=== PATIENT | male | born 1960 | race Caucasian/White ===

== ENCOUNTER → 2018-02-10 09:37 | Outpatient (CLI) | payer OTHER, SELFPAY ==
[2018-02-10 10:26] LABS: Alanine Aminotransferase 28 IU/L (21-72); Albumin 4.4 g/dL (3.5-5.0); Albumin Globulin Ratio 1.7 (1.0-2.8); Alkaline Phosphatase 71 U/L (38-126); Aspartate Aminotransferase 23 IU/L (17-59); BUN Creatinine Ratio 24.3 (6-22); Bilirubin Total 0.5 mg/dL (0.2-1.3); Blood Urea Nitrogen 17 mg/dL (9-20); Calcium 9.1 mg/dL (8.4-10.2); Carbon Dioxide 28 mmol/L (22-32); Chloride 104 mmol/L (98-107); Cholesterol 150 mg/dL (140-199); Estimated Glomerular Filt Rate > 60.0 mL/min (>60); Globulin 2.6 g/dL (1.7-4.1); Glucose 107 mg/dL (70-100); HDL Cholesterol 38 mg/dL (40-60); HEMOLYSIS < 15 (0-50); LDL Cholesterol Calculated 103 mg/dL (<100); Sodium 145 mmol/L (137-145); Triglycerides 44 mg/dL (35-150)
[2018-02-10 10:31] LABS: Potassium 5.5 mmol/L (3.4-5.1)
[2018-02-10 10:54] LABS: Prostate Specific Antigen Scrn 2.66 ng/mL (0.1-4.0)
== END ==
PROVIDERS: PCP Family Medicine; Visit Provider Family Medicine
DX: Z00.00 Encounter for general adult medical examination without abnormal findings (principal); Z12.5 Encounter for screening for malignant neoplasm of prostate; E78.5 Hyperlipidemia, unspecified
CPT/HCPCS: 36415; 80053; 80061; G0103

== ENCOUNTER → 2018-02-17 08:50 | Outpatient (CLI) | payer OTHER, SELFPAY ==
[2018-02-17 10:49] LABS: BUN Creatinine Ratio 31.4 (6-22); Blood Urea Nitrogen 22 mg/dL (9-20); Calcium 9.5 mg/dL (8.4-10.2); Carbon Dioxide 29 mmol/L (22-32); Chloride 101 mmol/L (98-107); Estimated Glomerular Filt Rate > 60.0 mL/min (>60); Glucose 93 mg/dL (70-100); HEMOLYSIS < 15 (0-50); Sodium 141 mmol/L (137-145)
[2018-02-17 10:52] LABS: Potassium 5.7 mmol/L (3.4-5.1)
== END ==
PROVIDERS: PCP Family Medicine; Visit Provider Family Medicine
DX: E87.5 Hyperkalemia (principal)
CPT/HCPCS: 36415; 80048

== ENCOUNTER → 2018-03-03 10:00 | Outpatient (CLI) | payer OTHER, SELFPAY ==
[2018-03-03 11:57] LABS: BUN Creatinine Ratio 28.8 (6-22); Blood Urea Nitrogen 23 mg/dL (9-20); Calcium 9.2 mg/dL (8.4-10.2); Carbon Dioxide 29 mmol/L (22-32); Chloride 102 mmol/L (98-107); Estimated Glomerular Filt Rate > 60.0 mL/min (>60); Glucose 95 mg/dL (70-100); HEMOLYSIS < 15 (0-50); Potassium 4.3 mmol/L (3.4-5.1); Sodium 141 mmol/L (137-145)
== END ==
PROVIDERS: PCP Family Medicine; Visit Provider Family Medicine
DX: E87.5 Hyperkalemia (principal)
CPT/HCPCS: 36415; 80048

== ENCOUNTER → 2018-10-04 09:38 | Outpatient (CLI) | payer OTHER, SELFPAY ==
[2018-10-04 11:40] LABS: Alanine Aminotransferase 26 IU/L (21-72); Albumin 4.2 g/dL (3.5-5.0); Albumin Globulin Ratio 1.6 (1.0-2.8); Alkaline Phosphatase 80 U/L (38-126); Aspartate Aminotransferase 24 IU/L (17-59); BUN Creatinine Ratio 28.6 (6-22); Bilirubin Total 0.7 mg/dL (0.2-1.3); Blood Urea Nitrogen 20 mg/dL (9-20); Calcium 9.3 mg/dL (8.4-10.2); Carbon Dioxide 26 mmol/L (22-32); Chloride 106 mmol/L (98-107); Estimated Glomerular Filt Rate > 60.0 mL/min (>60); Globulin 2.7 g/dL (1.7-4.1); Glucose 99 mg/dL (70-100); HEMOLYSIS < 15 (0-50); Potassium 4.2 mmol/L (3.4-5.1); Sodium 142 mmol/L (137-145); Total Protein 6.9 g/dL (6.3-8.2)
== END ==
PROVIDERS: PCP Family Medicine; Visit Provider Hospitalist
DX: K21.9 Gastro-esophageal reflux disease without esophagitis (principal)
CPT/HCPCS: 36415; 80053

== ENCOUNTER → 2019-02-22 08:27 | Outpatient (CLI) | payer OTHER, SELFPAY ==
[2019-02-22 08:54] LABS: Add Manual Diff / Slide Review NO; Basophils Absolute Auto 100 /uL (0-100); Basophils Percent Auto 0.9 % (0-2); Eosinophils Absolute Auto 300 /uL (0-450); Eosinophils Percent Auto 5.2 % (2-4); Hematocrit 42.5 % (41-53); Hemoglobin 14.6 g/dL (13.5-17.5); Lymphocytes Absolute Auto 2300 /uL (1100-4500); Mean Corpuscular HGB Conc 34.4 % (30-36); Mean Corpuscular Hemoglobin 31.1 PG (26-34); Mean Corpuscular Volume 90.2 fL (80-100); Monocytes Absolute Auto 500 /uL (0-900); Neutrophils Absolute Auto 2700 /uL (1500-7000); Neutrophils Percent Auto 45.9 % (50-75); Platelet Count 182 X10^3/uL (150-400); Red Blood Cell Count 4.71 X10^6/uL (4.5-5.9); Red Cell Distribution Width 13.2 % (11.6-14.8); White Blood Cell Count 5.9 X10^3/uL (4.5-11.0)
[2019-02-22 09:58] LABS: HEMOLYSIS < 15 (0-50)
[2019-02-22 10:09] LABS: Alanine Aminotransferase 21 IU/L (<50); Albumin 4.2 g/dL (3.5-5.0); Albumin Globulin Ratio 1.7 (1.0-2.8); Alkaline Phosphatase 83 U/L (38-126); Aspartate Aminotransferase 26 IU/L (17-59); BUN Creatinine Ratio 24.3 (6-22); Bilirubin Total 0.9 mg/dL (0.2-1.3); Blood Urea Nitrogen 17 mg/dL (9-20); Calcium 9.4 mg/dL (8.4-10.2); Carbon Dioxide 27 mmol/L (22-32); Chloride 105 mmol/L (98-107); Cholesterol 156 mg/dL (140-199); Estimated Glomerular Filt Rate > 60.0 mL/min (>60); Globulin 2.5 g/dL (1.7-4.1); Glucose 100 mg/dL (70-100); HDL Cholesterol 42 mg/dL (40-60); LDL Cholesterol Calculated 105 mg/dL (<100); Potassium 4.3 mmol/L (3.4-5.1); Sodium 141 mmol/L (137-145); Total Protein 6.7 g/dL (6.3-8.2); Triglycerides 47 mg/dL (35-150)
[2019-02-22 14:10] LABS: Prostate Specific Antigen 3.21 ng/mL (0.10-4.00)
== END ==
PROVIDERS: PCP Family Medicine; Visit Provider Family Medicine
DX: Z12.5 Encounter for screening for malignant neoplasm of prostate (principal); Z13.0 Encounter for screening for diseases of the blood and blood-forming organs and certain disorders involving the immune mechanism; Z13.1 Encounter for screening for diabetes mellitus; Z13.220 Encounter for screening for lipoid disorders; Z82.49 Family history of ischemic heart disease and other diseases of the circulatory system
CPT/HCPCS: 36415; 80053; 80061; 84153; 85025

== ENCOUNTER 2019-08-22 15:20 | Emergency (ER) | payer OTHER, SELFPAY ==
[2019-08-22 15:28] VITALS: BP 122/61; PULSE 72; RESP 16; TEMP 37.1; O2SAT 98; BMI 29.2
[2019-08-22] MEDS: LIDO 1%/SOD BICARB 8.4% (10ML) 10 ML SYRINGE INJ (16:00)
[2019-08-22 16:07] LABS: Body Fluid Appearance CLOUDY; Body Fluid Clotted? NO CLOTS PRESENT; Body Fluid Color YELLOW; Crystals Body Fluid - IN-HOUSE NONE Present
[2019-08-22 16:08] LABS: Body Fluid Red Blood Cells 54 /uL; Body Fluid Tot Nucleated Cells 7 /uL
--- NOTE | 2019-08-22 16:32 | ED_ITS ---
HPI - Extremity Problem General Chief complaint: Extremity Problem,Nontraumatic Stated complaint: left elbow swelling mass, getting bigger Time Seen by Provider: 08/22/19 15:22 Source: patient Mode of arrival: Ambulatory Limitations: no limitations History of Present Illness HPI Narrative: 59-year-old male nonsmoker with history of hyperlipidemia and GERD presents with a chief complaint of swelling of his left elbow over the past day or so. He denies any obvious injury, use of blood thinners or significant pain. Patient works at a local [employer] and has been working out frequently with a [employer]. He has had no fever, chills nor nausea or vomiting. MD Complaint: joint swelling Onset (ago): hour(s) Pain Consistency: constant Location: left Radiation: none Relieving factors: nothing Associated symptoms: denies other symptoms Related Data Previous Rx's Medication Instructions Recorded diclofenac sodium 75 mg PO BID #60 ect 10/12/16 omeprazole 20 mg capsule,delayed 20 mg PO DAILY #60 cap 12/03/18 release atorvastatin 80 mg tablet 40 mg PO Q DAY #45 tab 04/04/19 sulfamethoxazole-trimethoprim 1 tab PO BID 21 Days #42 tab 08/22/19 [Bactrim DS] Allergies Allergy/AdvReac Type Severity Reaction Status Date / Time Penicillins Allergy Unknown CHILDHOOD Verified 04/20/19 08:21 Review of Systems Constitutional Constitutional: Denies chills, Denies fatigue, Denies fever(s), Denies frequent falls, Denies lethargy and Denies weakness Eyes Eyes: Denies change in vision, Denies eye discharge, Denies irritation and Denies loss of vision ENT Ears, Nose, Mouth, and Throat: Denies change in voice, Denies dizziness, Denies neck pain, Denies sore throat and Denies throat swelling Cardiovascular Cardiovascular: Denies chest pain, Denies irregular heart rhythm, Denies lightheadedness, Denies palpitations, Denies dyspnea, Denies dyspnea on exertion and Denies orthopnea Respiratory Respiratory: Denies cough, Denies dyspnea, Denies dyspnea on exertion and Denies wheezing Gastrointestinal Gastrointestinal: Denies abdominal pain, Denies change in bowel habits, Denies diarrhea, Denies nausea and Denies vomiting Genitourinary Genitourinary: Denies hematuria, Denies flank pain, Denies urinary incontinence and Denies urinary urgency Musculoskeletal Musculoskeletal: Denies back pain, Reports joint swelling, Reports limited range of motion, Denies muscle weakness, Denies neck pain, Denies numbness and Denies tingling Integumentary/Breasts Skin/Breast: Denies pruritus, Denies erythema, Denies rash and Denies wounds Neurologic Neurologic: Denies behavioral changes, Denies confusion, Denies dizziness, Denies frequent falls, Denies loss of vision, Denies numbness, Denies tingling and Denies weakness Psychiatric Psychiatric: Denies anxiety, Denies behavioral changes, Denies confusion, Denies depression, Denies homicidal ideation and Denies suicidal ideation Endocrine Endocrine: Denies fatigue, Denies flushing and Denies palpitations Hematologic/Lymphatic Hematologic/Lymphatic: Denies easy bruising Allergic/Immunologic Allergic/Immunologic: Denies urticaria, Denies throat swelling and Denies wheezing Patient History Medical History Chicken pox (Resolved) Hyperlipidemia (Chronic) Measles (Resolved) Mumps (Resolved) Surgical History Anesthesia (Resolved) History of tonsillectomy (~1965) Status post colonoscopy (~2014) Family History Father Age: 77 Hyperlipidemia Prostate cancer Mother Age: 78 GI malignancy Social History marital status: number of children: 2 household members: spouse and family education level: high school occupational status: employed Smoking Status: Never smoker alcohol intake: current substance use type: does not use Smoking Status: Never smoker Exam Narrative Exam Narrative: GEN: AOx3 and in mild distress EYES: Pupils are equal, round, and reactive to light and accommodation. Extraoccular muscles are intact bilaterally. There is no subconjunctival hemorrhage or exudate. CHEST: Lungs are clear to auscultation bilaterally and free of wheezes, rales, or rhonchi. Heart rate is regular rhythm, there are no murmurs, clicks, rubs, or gallops. There is no chest wall tenderness. ABD: Abdomen is soft and nontender. There is no guarding or rebound. Bowel sounds are normal in all 4 quadrants. There is no mass or organomegaly. EXT: Redness and swelling overlying the left olecranon bursa with some fluctuance. Patient has full painless range of motion, no suggestion of septic arthritis. SKIN: Warm, pink, and dry. No erythema or rash Initial Vital Signs Initial Vital Signs: Vital Signs Temperature 98.7 F 08/22/19 15:28 Pulse Rate 72 08/22/19 15:28 Respiratory Rate 16 08/22/19 15:28 Blood Pressure 122/61 08/22/19 15:28 Pulse Oximetry 98 08/22/19 15:28 Procedures Bursa Procedure Time Out Performed: Yes Side of body: left Site of Procedure: olecranon bursa XRAY Obtained: none Antisepsis Used: Chlorhexidine Local Anesthetic: lidocaine 1% and with bicarb Amount of anesthesia used (mL): 4 Fluid obtained (mL): 8 Fluid Type: clear Patient Tolerated Procedure: Well Complications: none Course Course Course Narrative: Low suspicion for infectious etiology. Labs were sent. Upon their receipt I consulted with on-call orthopedist who agrees that no antibiotics needed at this point time. I did call the patient at home to relay this to him Orders Ordered: ED Orders 08/22/19 15:56 Cell Count w Diff Body Fluid Stat Crystals Body Fluid - IN-HOUSE Stat Discontinued Medications Lidocaine/Sodium Bicarbonate (Buffered Lidocaine 10 Ml Syr) 10 ml INJ NOW ONE Stop: 08/22/19 15:28 Last Admin: 08/22/19 16:00 Dose: 10 ml Documented by: CVANCE Vital Signs Vital signs: Vital Signs - 8 hr 08/22/19 15:28 Temperature 98.7 F Pulse Rate 72 Respiratory Rate 16 Blood Pressure 122/61 Pulse Oximetry 98 MDM - Extremity (Nontraumatic) Lab Data Labs: Lab Results 08/22/19 08/22/19 Range/Units 15:56 15:56 Fluid Color Yellow Fluid Appearance Cloudy Fluid RBC 54 /uL Fld Tot Nucleated Cell 7 /uL Fluid Polynuclear WBCs Not Reportable Fluid Mononuclear WBCs Not Reportable Fluid Eosinophils Not Reportable Fluid Other Cells Not Reportable Fluid Crystals None present (NONE) Body Fluid Clot No clots present Discharge Plan Departure Patient Disposition: Home Clinical Impression: Bursitis Qualifiers: Bursitis location: elbow Elbow bursitis location: olecranon bursitis Laterality: left Qualified Code(s): M70.22 - Olecranon bursitis, left elbow Discharge Date/Time: 08/22/19 16:01 Instructions: DI for Elbow Bursitis Activity Restrictions/Additional Instructions: *You have been diagnosed with [left olecranon bursitis] *What to do: *I will call you at the number you provided when lab results come back. Do not fill the antibiotic prescription unless we discuss this. *Follow up with your primary care provider in 2-3 days, call for an appo intment. Let them know you were seen in the Emergency Department and that we ask that you be seen in follow up *Return to ER if you should have any new, worsening or concerning symptoms Prescriptions: New sulfamethoxazole-trimethoprim [Bactrim DS] 800-160 mg tablet 1 tab PO BID 21 Days Qty: 42 RF: 0 No Action diclofenac sodium 75 MG tablet,delayed release (DR/EC) 75 mg PO BID Qty: 60 RF: 1 omeprazole 20 mg capsule,delayed release(DR/EC) 20 mg PO DAILY Qty: 60 RF: 6 atorvastatin [Lipitor] 80 mg tablet 40 mg PO Q DAY Qty: 45 RF: 3 Referrals: Jes Hale DO [Primary Care Provider] - Stand Alone Forms: Work Release Note
== END 2019-08-22 16:01 | disposition home or self-care (01) ==
PROVIDERS: Emergency Provider Emergency Medicine; PCP Family Medicine
DX: M70.22 Olecranon bursitis, left elbow (principal); E78.5 Hyperlipidemia, unspecified
CPT/HCPCS: 20605; 89051; 89060; 99283

== ENCOUNTER 2019-08-23 15:24 | Emergency (ER) | payer OTHER, SELFPAY ==
[2019-08-23 15:33] VITALS: BP 122/61; PULSE 91; RESP 18; TEMP 37.6; O2SAT 99; BMI 29.2
[2019-08-23] MEDS: SODIUM CHLORIDE 0.9% 1,000 ML 1000 ML IV (16:00)
[2019-08-23 16:02] LABS: Add Manual Diff / Slide Review NO; Basophils Absolute Auto 0 /uL (0-100); Basophils Percent Auto 0.5 % (0-2); Eosinophils Absolute Auto 200 /uL (0-450); Eosinophils Percent Auto 1.6 % (2-4); Hematocrit 40.3 % (41-53); Lymphocytes Absolute Auto 1300 /uL (1100-4500); Lymphocytes Percent Auto 13.1 % (25-40); Mean Corpuscular HGB Conc 34.7 % (30-36); Mean Corpuscular Hemoglobin 31.5 PG (26-34); Mean Corpuscular Volume 90.8 fL (80-100); Monocytes Absolute Auto 900 /uL (0-900); Monocytes Percent Auto 8.7 % (3-14); Neutrophils Absolute Auto 7800 /uL (1500-7000); Neutrophils Percent Auto 76.1 % (50-75); Platelet Count 172 X10^3/uL (150-400); Red Blood Cell Count 4.44 X10^6/uL (4.5-5.9); Red Cell Distribution Width 13.2 % (11.6-14.8); White Blood Cell Count 10.3 X10^3/uL (4.5-11.0)
[2019-08-23 16:10] LABS: INR 1.2 (0.9-1.3); Prothrombin Time 13.3 SECONDS (10.1-12.7)
[2019-08-23 16:12] LABS: Lactate (Lactic Acid) 1.1 mmol/L (0.7-2.1)
[2019-08-23 16:13] LABS: PTT Partial Thromboplastin Tim 31 SECONDS (26.4-36.2)
[2019-08-23 16:15] LABS: Alanine Aminotransferase 27 IU/L (<50); Albumin 4.5 g/dL (3.5-5.0); Albumin Globulin Ratio 1.5 (1.0-2.8); Alkaline Phosphatase 73 U/L (38-126); Aspartate Aminotransferase 32 IU/L (17-59); BUN Creatinine Ratio 33.9 (6-22); Blood Urea Nitrogen 21 mg/dL (9-20); Calcium 9.1 mg/dL (8.4-10.2); Carbon Dioxide 26 mmol/L (22-32); Chloride 104 mmol/L (98-107); Estimated Glomerular Filt Rate > 60.0 mL/min (>60); Glucose 106 mg/dL (70-100); HEMOLYSIS < 15 (0-50); Lipase 69 U/L (23-300); Potassium 3.9 mmol/L (3.4-5.1); Sodium 139 mmol/L (137-145); Total Protein 7.5 g/dL (6.3-8.2)
[2019-08-23 16:54] LABS: Procalcitonin < 0.05 ng/mL (<0.5)
[2019-08-23 17:48] VITALS: BP 118/68; PULSE 68; RESP 16; TEMP 37.2; O2SAT 97
--- NOTE | 2019-08-23 18:43 | ED_ITS ---
HPI - General Adult General Chief complaint: Fever Stated complaint: fever and not feeling good Time Seen by Provider: 08/23/19 18:12 Source: patient Mode of arrival: Ambulatory History of Present Illness HPI narrative: 59-year-old gentleman with a history of reflux and hyperlipidemia presented with a left olecranon bursitis developing over the last 72 hours. He was seen in this emergency department yesterday and the bursa was drained s uccessfully with bursal fluid showing no evidence of infection. He presents today with myalgias, fevers and increasing redness around the left elbow. He has full nontender range of motion at the elbow. Related Data Previous Rx's Medication Instructions Recorded diclofenac sodium 75 mg PO BID #60 ect 10/12/16 omeprazole 20 mg capsule,delayed 20 mg PO DAILY #60 cap 12/03/18 release atorvastatin 80 mg tablet 40 mg PO Q DAY #45 tab 04/04/19 sulfamethoxazole-trimethoprim 1 tab PO BID 21 Days #42 tab 08/22/19 [Bactrim DS] cephalexin 500 mg PO Q8H #21 cap 08/23/19 Allergies Allergy/AdvReac Type Severity Reaction Status Date / Time Penicillins Allergy Unknown CHILDHOOD Verified 08/23/19 15:36 Review of Systems Review of Systems Narrative: Pertinent positive and negative findings as per HPI Remainder of review of systems is otherwise unremarkable for ENT: No sore throat, neck pain, ear pain CV: Chest pain, palpitations, dyspnea on exertion Respiratory: Cough, wheeze, dyspnea GI: Nausea, vomiting, diarrhea, change in bowel habits, black or bloody stools : Dysuria, hematuria, flank pain MS: Muscle weakness, numbness, joint swelling or warmth Neuro: Syncope, dizziness, tingling Psych: Depression, anxiety, suicidal ideation Patient History Social History marital status: number of children: 2 household members: spouse and family education level: high school occupational status: employed Smoking Status: Former smoker alcohol intake: current substance use type: does not use Smoking Status: Former smoker Substance Use Type: does not use Exam Narrative Exam Narrative: General: Alert appropriate in no acute distress Respiratory: Able to speak in full sentences, no obvious respiratory distress, clear to auscultation in all lung almonte Cardiac: No tachycardia, no murmurs rubs or gallops Skin: No obvious rashes, warm and dry Neurologic: Grossly intact no obvious asymmetries or abnormalities Psych, appropriate insight and affect, cooperative Extremity: Left elbow has minimal accumulation of olecranon bursal fluid however there is an extending area of cellulitis approximately 5 cm in all directions from the olecranon. He has no axillary adenopathy, there are no lymphangitic streaks. He is completely neurovascularly intact distal and has non painful full range of motion at the elbow suggesting no evidence of intra- articular infection Initial Vital Signs Initial Vital Signs: Vital Signs Temperature 99.6 F 08/23/19 15:33 Pulse Rate 91 H 08/23/19 15:33 Respiratory Rate 18 08/23/19 15:33 Blood Pressure 122/61 08/23/19 15:33 Pulse Oximetry 99 08/23/19 15:33 Course Orders Ordered: ED Orders 08/23/19 15:37 EKG-12 Lead Stat 08/23/19 15:45 Complete Blood Count AUTO DIFF Stat Comprehensive Metabolic Panel Stat Lactate (Lactic Acid) Stat Lipase Stat Partial Thromboplastin Time Stat Procalcitonin Stat Prothrombin Time INR Stat 08/23/19 16:25 Blood Culture Stat Discontinued Medications Sodium Chloride (Normal Saline 0.9%) 1,000 mls @ 1,000 mls/hr IV BOLUS ONE Stop: 08/23/19 16:36 Last Infusion: 08/23/19 17:44 Dose: 0 mls/hr Documented by: Admin: 08/23/19 16:00 Dose: 1,000 mls/hr Documented by: BRAYAN Ceftriaxone Sodium/Dextrose (Rocephin) 2 gm in 50 mls @ 100 mls/hr IV NOW ONE Stop: 08/23/19 19:44 Last Infusion: 08/23/19 20:23 Dose: 0 mls/hr Documented by: Admin: 08/23/19 19:55 Dose: 100 mls/hr Documented by: HAFSA Ketorolac Tromethamine (Toradol) 15 mg IV NOW ONE Stop: 08/23/19 19:15 Last Admin: 08/23/19 19:54 Dose: 15 mg Documented by: HAFSA Vital Signs Vital signs: Vital Signs - 8 hr 08/23/19 15:33 08/23/19 17:48 05/15/20 21:21 Temperature 99.6 F 99.0 F Pulse Rate 91 H 68 80 Respiratory Rate 18 16 Blood Pressure 122/61 118/68 Blood Pressure [Right Arm] 118/68 Pulse Oximetry 99 97 98 Medical Decision Making Medical Records Medical records reviewed: Yes I reviewed the patient's medical records. Lab Data Lab results reviewed: Yes I reviewed the patient's lab results. Result diagrams: 08/23/19 15:45 08/23/19 15:45 Labs: Lab Results 08/23/19 08/23/19 08/23/19 Range/Units 15:45 15:45 15:45 WBC 10.3 (4.5-11.0) X10^3/uL RBC 4.44 L (4.5-5.9) X10^6/uL Hgb 14.0 (13.5-17.5) g/dL Hct 40.3 L (41-53) % MCV 90.8 (80-100) fL MCH 31.5 (26-34) PG MCHC 34.7 (30-36) % RDW 13.2 (11.6-14.8) % Plt Count 172 (150-400) X10^3/uL Neut % (Auto) 76.1 H (50-75) % Lymph % (Auto) 13.1 L (25-40) % Ceiba % (Auto) 8.7 (3-14) % Eos % (Auto) 1.6 L (2-4) % Baso % (Auto) 0.5 (0-2) % Neut # (Auto) 7800 H (9248-5606) /uL Lymph # (Auto) 1300 (8270-7075) /uL Ceiba # (Auto) 900 (0-900) /uL Eos # (Auto) 200 (0-450) /uL Baso # (Auto) 0 (0-100) /uL PT 13.3 H (10.1-12.7) SECONDS INR 1.2 (0.9-1.3) APTT 31 (26.4-36.2) SECONDS Sodium (137-145) mmol/L Potassium (3.4-5.1) mmol/L Chloride (98-107) mmol/L Carbon Dioxide (22-32) mmol/L BUN (9-20) mg/dL Creatinine (0.66-1.25) mg/dL Estimated GFR (>60) mL/min BUN/Creatinine Ratio (6-22) Glucose (70-100) mg/dL Lactate (0.7-2.1) mmol/L Calcium (8.4-10.2) mg/dL Total Bilirubin (0.2-1.3) mg/dL AST (17-59) IU/L ALT (<50) IU/L Alkaline Phosphatase (38-126) U/L Total Protein (6.3-8.2) g/dL Albumin (3.5-5.0) g/dL Globulin (1.7-4.1) g/dL Albumin/Globulin Ratio (1.0-2.8) Lipase (23-300) U/L Procalcitonin < 0.05 (<0.5) ng/mL 08/23/19 08/23/19 Range/Units 15:45 15:45 WBC (4.5-11.0) X10^3/uL RBC (4.5-5.9) X10^6/uL Hgb (13.5-17.5) g/dL Hct (41-53) % MCV (80-100) fL MCH (26-34) PG MCHC (30-36) % RDW (11.6-14.8) % Plt Count (150-400) X10^3/uL Neut % (Auto) (50-75) % Lymph % (Auto) (25-40) % Ceiba % (Auto) (3-14) % Eos % (Auto) (2-4) % Baso % (Auto) (0-2) % Neut # (Auto) (8578-1036) /uL Lymph # (Auto) (8046-1233) /uL Ceiba # (Auto) (0-900) /uL Eos # (Auto) (0-450) /uL Baso # (Auto) (0-100) /uL PT (10.1-12.7) SECONDS INR (0.9-1.3) APTT (26.4-36.2) SECONDS Sodium 139 (137-145) mmol/L Potassium 3.9 (3.4-5.1) mmol/L Chloride 104 (98-107) mmol/L Carbon Dioxide 26 (22-32) mmol/L BUN 21 H (9-20) mg/dL Creatinine 0.62 L (0.66-1.25) mg/dL Estimated GFR > 60.0 (>60) mL/min BUN/Creatinine Ratio 33.9 H (6-22) Glucose 106 H (70-100) mg/dL Lactate 1.1 (0.7-2.1) mmol/L Calcium 9.1 (8.4-10.2) mg/dL Total Bilirubin 1.0 (0.2-1.3) mg/dL AST 32 (17-59) IU/L ALT 27 (<50) IU/L Alkaline Phosphatase 73 (38-126) U/L Total Protein 7.5 (6.3-8.2) g/dL Albumin 4.5 (3.5-5.0) g/dL Globulin 3.0 (1.7-4.1) g/dL Albumin/Globulin Ratio 1.5 (1.0-2.8) Lipase 69 (23-300) U/L Procalcitonin (<0.5) ng/mL MDM Narrative Medical decision making narrative: Labs reviewed. No evidence of sepsis. Patient is started on ceftriaxone in the emergency department prescription for cephalexin is given in follow-up. Developing cellulitis after drainage of an olecranon bursa with resolving olecranon bursitis. No evidence of septic joint. Patient is safe for home discharge Discharge Plan Departure Patient Disposition: Home Clinical Impression: Cellulitis Qualifiers: Site of cellulitis: extremity Site of cellulitis of extremity: upper extremity Laterality: left Qualified Code(s): L03.114 - Cellulitis of left upper limb Discharge Date/Time: 08/23/19 21:21 Instructions: DI for Cellulitis -- Adult Activity Restrictions/Additional Instructions: Thank you for coming in today It looks like the olecranon bursitis (fluid on the elbow) is feeling better after was drained yesterday. You have developed surrounding cellulitis that does not look like it is affecting that bursa or getting into the joint itself. The blood work we did in the emergency room does not suggest that this infection has spread beyond the obvious redness at your elbow. In the emergency room you are given 2 g of ceftriaxone, and antibiotic to get started on treatment. You will need an additional 7 days of oral cephalexin/Keflex to treat the cellulitis. The prescription has been electronically sent to [facility] in [place]. Please start it as soon as possible tomorrow. If you are having increasing fevers, chills, the elbow is getting worse or your having pain with the elbow joint do need to return to the emergency room for additional evaluation. I hope you feel better quickly Prescriptions: New cephalexin 500 mg capsule 500 mg PO Q8H Qty: 21 RF: 0 No Action diclofenac sodium 75 MG tablet,delayed release (DR/EC) 75 mg PO BID Qty: 60 RF: 1 omeprazole 20 mg capsule,delayed release(DR/EC) 20 mg PO DAILY Qty: 60 RF: 6 atorvastatin [Lipitor] 80 mg tablet 40 mg PO Q DAY Qty: 45 RF: 3 sulfamethoxazole-trimethoprim [Bactrim DS] 800-160 mg tablet 1 tab PO BID 21 Days Qty: 42 RF: 0 Referrals: Jes Hale DO [Primary Care Provider] -
[2019-08-23] MEDS: KETOROLAC 60 MG/2 ML VIAL 15 MG IV (19:54)
[2019-08-23] MEDS: CEFTRIAXONE 2 GM/50 ML FROZ.PIGGY IV (19:55)
[2019-08-23 21:21] VITALS: BP 118/68; PULSE 80; O2SAT 98
== END 2019-08-23 21:21 | disposition home or self-care (01) ==
PROVIDERS: Emergency Medicine; Emergency Provider Emergency Medicine; PCP Family Medicine
DX: L03.114 Cellulitis of left upper limb (principal)
CPT/HCPCS: 36415; 80053; 83605; 83690; 84145; 85025; 85610; 85730; 87040; 93005; 96361; 96365; 96375; 99284; J0696; J1885

== ENCOUNTER 2019-08-24 22:32 | Emergency (ER) | payer OTHER, SELFPAY ==
[2019-08-24 22:38] VITALS: BP 133/63; PULSE 74; RESP 16; TEMP 36.9; O2SAT 99; BMI 29.2
--- NOTE | 2019-08-24 22:41 | ED_ITS ---
HPI - Skin/Abscess/Foreign Bdy General Chief complaint: Skin/Abscess/Foreign Body Stated complaint: Left arm bursitis, cellulitis Time Seen by Provider: 08/24/19 22:34 Source: patient and family Mode of arrival: Ambulatory Limitations: no limitations History of Present Illness HPI narrative: 59-year-old male nonsmoker with noncontributory medical history returns for his 3rd visit for evaluation of swelling of his left elbow. I 1st saw him on August 21 for pain and swelling was left elbow after significant overuse and repetitive motion at work and with his workout routine. Elbow was tapped and showed no sign of infection. He was encouraged to lay low at work and home and rapid. He followed up the next day and had some increased redness and filled the prescription of Keflex he was given during his initial visit. He presents tonight due to concerns from family that there is some increased swelling distal to his bursa. He states he has great range of motion and very little pain. He denies any fever or chills. He is not nauseated or vomiting. MD complaint: other Onset (ago): day(s) Tetanus up to date: yes Location: LUE Severity: mild Severity scale (1-10): 1 Quality: aching Pain Consistency: constant Relieving factors: rest Context: none Associated symptoms: denies other symptoms Treatments prior to arrival: bandages and antibiotic Related Data Previous Rx's Medication Instructions Recorded diclofenac sodium 75 mg PO BID #60 ect 10/12/16 omeprazole 20 mg capsule,delayed 20 mg PO DAILY #60 cap 12/03/18 release atorvastatin 80 mg tablet 40 mg PO Q DAY #45 tab 04/04/19 sulfamethoxazole-trimethoprim 1 tab PO BID 21 Days #42 tab 08/22/19 [Bactrim DS] cephalexin 500 mg PO Q8H #21 cap 08/23/19 Allergies Allergy/AdvReac Type Severity Reaction Status Date / Time Penicillins Allergy Unknown CHILDHOOD Verified 08/23/19 15:36 Review of Systems Constitutional Constitutional: Denies chills, Denies fatigue, Denies fever(s), Denies frequent falls, Denies lethargy and Denies weakness Eyes Eyes: Denies change in vision, Denies eye discharge, Denies irritation and Denies loss of vision ENT Ears, Nose, Mouth, and Throat: Denies change in voice, Denies dizziness, Denies neck pain, Denies sore throat and Denies throat swelling Cardiovascular Cardiovascular: Denies chest pain, Denies irregular heart rhythm, Denies lightheadedness, Denies palpitations, Denies dyspnea, Denies dyspnea on exertion and Denies orthopnea Respiratory Respiratory: Denies cough, Denies dyspnea, Denies dyspnea on exertion and Denies wheezing Gastrointestinal Gastrointestinal: Denies abdominal pain, Denies change in bowel habits, Denies diarrhea, Denies nausea and Denies vomiting Genitourinary Genitourinary: Denies hematuria, Denies flank pain, Denies urinary incontinence and Denies urinary urgency Musculoskeletal Musculoskeletal: Denies back pain, Denies muscle weakness, Denies neck pain, Denies numbness and Denies tingling Integumentary/Breasts Skin/Breast: Denies pruritus, Reports erythema, Denies rash and Denies wounds Neurologic Neurologic: Denies behavioral changes, Denies confusion, Denies dizziness, Denies frequent falls, Denies loss of vision, Denies numbness, Denies tingling and Denies weakness Psychiatric Psychiatric: Denies anxiety, Denies behavioral changes, Denies confusion, Denies depression, Denies homicidal ideation and Denies suicidal ideation Endocrine Endocrine: Denies fatigue, Denies flushing and Denies palpitations Hematologic/Lymphatic Hematologic/Lymphatic: Denies easy bruising Allergic/Immunologic Allergic/Immunologic: Denies urticaria, Denies throat swelling and Denies wheezing Patient History Medical History Chicken pox (Resolved) Hyperlipidemia (Chronic) Measles (Resolved) Mumps (Resolved) Surgical History Anesthesia (Resolved) History of tonsillectomy (~1965) Status post colonoscopy (~2014) Family History Father Age: 77 Hyperlipidemia Prostate cancer Mother Age: 78 GI malignancy Social History marital status: number of children: 2 household members: spouse and family education level: high school occupational status: employed Smoking Status: Former smoker alcohol intake: current substance use type: does not use Smoking Status: Former smoker Substance Use Type: does not use Exam Narrative Exam Narrative: GEN: AOx3 and in mild distress EYES: Pupils are equal, round, and reactive to light and accommodation. Extraoccular muscles are intact bilaterally. There is no subconjunctival hemorrhage or exudate. CHEST: Lungs are clear to auscultation bilaterally and free of wheezes, rales, or rhonchi. Heart rate is regular rhythm, there are no murmurs, clicks, rubs, or gallops. There is no chest wall tenderness. ABD: Abdomen is soft and nontender. There is no guarding or rebound. Bowel sounds are normal in all 4 quadrants. There is no mass or organomegaly. EXT: Full and painless range of motion of left upper extremity. There is still some swelling overlying his left bursa but very minimal erythema. Area of con cern is distal to bursa and very soft. Most likely a consequence of gravity dependent edema as a consequence of bursitis. No overlying pain, warmth, tenderness. Very soft and fluid. No lymphangitis SKIN: Warm, pink, and dry. No erythema or rash other than that which is noted above Initial Vital Signs Initial Vital Signs: Vital Signs Temperature 98.5 F 08/24/19 22:38 Pulse Rate 74 08/24/19 22:38 Respiratory Rate 16 08/24/19 22:38 Blood Pressure 133/63 08/24/19 22:38 Pulse Oximetry 99 08/24/19 22:38 Course Orders Ordered: ED Orders 08/24/19 22:45 Basic Metabolic Panel Stat Complete Blood Count AUTO DIFF Stat Vital Signs Vital signs: Vital Signs - 8 hr 08/24/19 22:38 08/24/19 23:12 Temperature 98.5 F Pulse Rate 74 Respiratory Rate 16 16 Blood Pressure 133/63 116/66 Pulse Oximetry 99 97 MDM - Skin/Abscess/Foreign Bdy Lab Data Result diagrams: 08/24/19 22:45 08/24/19 22:45 Labs: Lab Results 08/24/19 08/24/19 Range/Units 22:45 22:45 WBC 11.1 H (4.5-11.0) X10^3/uL RBC 4.40 L (4.5-5.9) X10^6/uL Hgb 13.9 (13.5-17.5) g/dL Hct 40.3 L (41-53) % MCV 91.5 (80-100) fL MCH 31.6 (26-34) PG MCHC 34.5 (30-36) % RDW 13.5 (11.6-14.8) % Plt Count 156 (150-400) X10^3/uL Neut % (Auto) 52.1 D (50-75) % Lymph % (Auto) 29.8 (25-40) % Davison % (Auto) 12.9 (3-14) % Eos % (Auto) 4.0 (2-4) % Baso % (Auto) 1.2 (0-2) % Neut # (Auto) 5800 (7954-1506) /uL Lymph # (Auto) 3300 (1569-9309) /uL Davison # (Auto) 1400 H (0-900) /uL Eos # (Auto) 400 (0-450) /uL Baso # (Auto) 100 (0-100) /uL Sodium 138 (137-145) mmol/L Potassium 3.9 (3.4-5.1) mmol/L Chloride 106 (98-107) mmol/L Carbon Dioxide 24 (22-32) mmol/L BUN 20 (9-20) mg/dL Creatinine 0.57 L (0.66-1.25) mg/dL Estimated GFR > 60.0 (>60) mL/min BUN/Creatinine Ratio 35.1 H (6-22) Glucose 140 H (70-100) mg/dL Calcium 9.1 (8.4-10.2) mg/dL Discharge Plan Departure Patient Disposition: Home Clinical Impression: Cellulitis Qualifiers: Site of cellulitis: extremity Site of cellulitis of extremity: upper extremity Laterality: left Qualified Code(s): L03.114 - Cellulitis of left upper limb Discharge Date/Time: 08/24/19 23:12 Instructions: DI for Cellulitis -- Adult Activity Restrictions/Additional Instructions: *You have been diagnosed with [mild cellulitis of left upper extremity, very reassuring labs and exam] *What to do: * continue to take medications as directed *Follow up with your primary care provider in 2-3 days, call for an appointment. Let them know you were seen in the Emergency Department and that we ask that you be seen in follow up *Return to ER if you should have any new, worsening or concerning symptoms, such as [fever, shaking chills, vomiting or other bothersome symptoms] Prescriptions: No Action diclofenac sodium 75 MG tablet,delayed release (DR/EC) 75 mg PO BID Qty: 60 RF: 1 omeprazole 20 mg capsule,delayed release(DR/EC) 20 mg PO DAILY Qty: 60 RF: 6 atorvastatin [Lipitor] 80 mg tablet 40 mg PO Q DAY Qty: 45 RF: 3 sulfamethoxazole-trimethoprim [Bactrim DS] 800-160 mg tablet 1 tab PO BID 21 Days Qty: 42 RF: 0 cephalexin 500 mg capsule 500 mg PO Q8H Qty: 21 RF: 0 Referrals: Jes Hale DO [Primary Care Provider] -
[2019-08-24 22:52] LABS: Add Manual Diff / Slide Review NO; Basophils Absolute Auto 100 /uL (0-100); Basophils Percent Auto 1.2 % (0-2); Eosinophils Absolute Auto 400 /uL (0-450); Hematocrit 40.3 % (41-53); Hemoglobin 13.9 g/dL (13.5-17.5); Lymphocytes Absolute Auto 3300 /uL (1100-4500); Lymphocytes Percent Auto 29.8 % (25-40); Mean Corpuscular HGB Conc 34.5 % (30-36); Mean Corpuscular Hemoglobin 31.6 PG (26-34); Mean Corpuscular Volume 91.5 fL (80-100); Monocytes Absolute Auto 1400 /uL (0-900); Monocytes Percent Auto 12.9 % (3-14); Neutrophils Absolute Auto 5800 /uL (1500-7000); Neutrophils Percent Auto 52.1 % (50-75); Platelet Count 156 X10^3/uL (150-400); Red Cell Distribution Width 13.5 % (11.6-14.8); White Blood Cell Count 11.1 X10^3/uL (4.5-11.0)
[2019-08-24 23:02] LABS: BUN Creatinine Ratio 35.1 (6-22); Blood Urea Nitrogen 20 mg/dL (9-20); Calcium 9.1 mg/dL (8.4-10.2); Carbon Dioxide 24 mmol/L (22-32); Chloride 106 mmol/L (98-107); Estimated Glomerular Filt Rate > 60.0 mL/min (>60); Glucose 140 mg/dL (70-100); HEMOLYSIS 30 (0-50); Potassium 3.9 mmol/L (3.4-5.1); Sodium 138 mmol/L (137-145)
[2019-08-24 23:12] VITALS: BP 116/66; RESP 16; O2SAT 97
== END 2019-08-24 23:12 | disposition home or self-care (01) ==
PROVIDERS: Emergency Provider Emergency Medicine; PCP Family Medicine
DX: L03.114 Cellulitis of left upper limb (principal)
CPT/HCPCS: 36415; 80048; 85025; 99283

== ENCOUNTER → 2020-02-19 11:44 | Outpatient (CLI) | payer OTHER, SELFPAY ==
[2020-02-19 13:38] LABS: COVID19 -Nasal RAPID Negative (Negative)
== END ==
PROVIDERS: PCP Family Medicine; Visit Provider Physician Assistant
DX: Z03.818 Encounter for observation for suspected exposure to other biological agents ruled out (principal)
CPT/HCPCS: 87635

== ENCOUNTER → 2020-02-24 10:03 | Outpatient (CLI) | payer OTHER, SELFPAY ==
[2020-02-24 12:18] LABS: COVID19 -Nasal RAPID Negative (Negative)
== END ==
PROVIDERS: PCP Family Medicine; Visit Provider Physician Assistant
DX: Z03.818 Encounter for observation for suspected exposure to other biological agents ruled out (principal)
CPT/HCPCS: 87635

== ENCOUNTER → 2020-02-25 09:28 | Outpatient (CLI) | payer OTHER, SELFPAY ==
[2020-02-25 12:05] LABS: Alanine Aminotransferase 31 IU/L (<50); Albumin 4.2 g/dL (3.5-5.0); Albumin Globulin Ratio 1.6 (1.0-2.8); Alkaline Phosphatase 74 U/L (38-126); Aspartate Aminotransferase 29 IU/L (17-59); BUN Creatinine Ratio 27.9 (6-22); Bilirubin Total 0.9 mg/dL (0.2-1.3); Blood Urea Nitrogen 17 mg/dL (9-20); Calcium 9.4 mg/dL (8.4-10.2); Carbon Dioxide 30 mmol/L (22-32); Chloride 103 mmol/L (98-107); Cholesterol 153 mg/dL (140-199); Estimated Glomerular Filt Rate > 60.0 mL/min (>60); Globulin 2.6 g/dL (1.7-4.1); Glucose 93 mg/dL (70-100); HDL Cholesterol 41 mg/dL (40-60); HEMOLYSIS < 15 (0-50); LDL Cholesterol Calculated 101 mg/dL (<100); Potassium 4.6 mmol/L (3.4-5.1); Sodium 138 mmol/L (137-145); Total Protein 6.8 g/dL (6.3-8.2); Triglycerides 55 mg/dL (35-150)
[2020-02-25 12:33] LABS: Prostate Specific Antigen Scrn 2.64 ng/mL (0.1-4.0)
== END ==
PROVIDERS: PCP Family Medicine; Referring Provider Family Medicine; Visit Provider Family Medicine
DX: E78.5 Hyperlipidemia, unspecified (principal); Z12.5 Encounter for screening for malignant neoplasm of prostate
CPT/HCPCS: 36415; 80053; 80061; G0103

== ENCOUNTER → 2020-04-30 13:36 | Outpatient (CLI) | payer OTHER, SELFPAY ==
[2020-04-30 15:49] LABS: COVID19 -Nasal RAPID Negative (Negative)
== END ==
PROVIDERS: PCP Family Medicine; Visit Provider Surgery
DX: Z20.822 Contact with and (suspected) exposure to COVID-19 (principal); Z01.812 Encounter for preprocedural laboratory examination
CPT/HCPCS: 87635; C9803

== ENCOUNTER 2020-05-01 06:39 | Day surgery (SDC) | payer OTHER, SELFPAY ==
--- NOTE | 2020-05-01 | PATH_ITS ---
[facility] Accession Number: [id number] . 01 Material submitted: . PART A: duodenum - DUODENUM PART B: gastrointestinal site - GASTRIC ANTRUM PART C: gastrointestinal site - GASTRIC BODY PART D: esophagus - ESOPHAGUS . 02 Diagnosis: A. Duodenum, Biopsy: Duodenal mucosa with no diagnostic abnormality. Negative for active inflammation, features of sprue, dysplasia, or malignancy. . B. Gastric Antrum, Biopsies: Gastric antral mucosa with mild chronic inflammation and intestinal metaplasia. Intestinal metaplasia present in 1 of 2 biopsy fragments. Negative for Helicobacter organisms by immunohistochemistry. Negative for dysplasia or malignancy. . C. Gastric Body, Biopsies: Gastric body mucosa with no diagnostic abnormality. No evidence of Helicobacter organisms on H/E stain. Negative for intestinal metaplasia. Negative for dysplasia and malignancy. . D. Esophagus, Biopsies: Squamous epithelium with no diagnostic abnormality. Intraepithelial eosinophils are not increased. Negative for dysplasia and malignancy. [facility] 05/07/2020 1749 Local . 02 Electronically signed: . Dev Jorgensen MD, PhD, Pathologist NPI- [id number] . 01 Gross description: . Part A: DUODENUM: Received in formalin are 2 fragment(s) of tobin, soft tissue measuring 0.1 x 0.1 x 0.1 cm to 0.2 x 0.2 x 0.2 cm submitted entirely in 1 cassette(s) Part B: GASTRIC ANTRUM: Received in formalin are 2 fragment(s) of tobin, soft tissue measuring 0.2 x 0.1 x 0.1 cm to 0.4 x 0.2 x 0.2 cm submitted entirely in 1 cassette(s) Part C: GASTRIC BODY: Received in formalin are 3 fragment(s) of tobin, soft tissue measuring 0.1 x 0.1 x 0.1 cm to 0.3 x 0.2 x 0.2 cm submitted entirely in 1 cassette(s) Part D: ESOPHAGUS: Received in formalin are 3 fragment(s) of tobin, soft tissue measuring 0.1 x 0.1 x 0.1 cm to 0.2 x 0.1 x 0.1 cm submitted entirely in 1 cassette(s) /[facility] 05/04/2020 1928 Local . 02 Microscopic: . B. An immunohistochemical stain was performed to evaluate for Helicobacter organisms and is negative. The control stain showed appropriate reactivity. . * This test was developed and its performance characteristics determined by [facility]. It has not been cleared or approved by the U.S. Food and Drug Administration. The FDA has determined that such clearance or approval is not necessary. This test is used for clinical purposes. It should not be regarded as investigational or for research. . 02 Pathologist provided ICD-10: R14.0, R68.81, R14.2, K31.9 . 02 CPT . 400461, 801151, 526296, 296854, L08074 Performed at: 01 [facility] [address] [place] [address], [place], [place] [id number] MD Fabricio Esteves MD Phone: [phone] Performed at: 02 [facility] [address] [place] [id number] MD Trisha Bhatti MD Phone: [phone]
[2020-05-01 07:10] VITALS: BP 130/77; PULSE 77; RESP 16; TEMP 37.1; O2SAT 98; BMI 29.5
[2020-05-01] MEDS: SODIUM CHLORIDE 0.9% 1,000 ML 200 ML IV (07:23)
--- NOTE | 2020-05-01 07:39 | PM.PREOP ---
Pre-operative Note COVID-19 COVID-19 status: Negative Result date/Date tested (Pos, Neg/Pending): 04/30/20 Interval Note History & Physical reviewed/Exam performed by Physician: Yes Changes to H&P: Yes H&P completed within 30 days and has changed as indicated here:: Pt symptoms returned and he would like to go ahead with diagnostic EGD ASA Class (for procedural sedation): II
[2020-05-01] MEDS: LIDOCAINE 4% SOLN 50 ML 20 ML TOP (07:48)
[2020-05-01] MEDS: fentaNYL 250 MCG/5 ML INJ IV (07:50)
[2020-05-01] MEDS: MIDAZOLAM 5 MG/5 ML VIAL IV (07:53)
--- NOTE | 2020-05-01 08:08 | PM.OP.ENDO ---
Operative Date/Time/Diagnoses Date of procedure: 05/01/20 Time of procedure: 08:08 Pre-op diagnosis: Epigastric pain, nausea Post-op diagnosis: same (mild appearing endoscopic gastritis, no hiatal hernia, no endoscopic evidence of ulcer or esophagitis) Procedure & Clinicians Study performed: Esophagogastroduodenoscopy Procedural sedation performed by the endoscopist Biopsies of duodenum, gastric antrum, gastric body, esophagus using standard forceps Same procedure as scheduled: Yes Indications: Epigastric pain, postprandial nausea Surgeon: Jocelyne Figueroa Procedure Notes SCOAP/Timeout: Performed Procedure in detail: The patient was brought to the room and placed in left lateral decubitus position with all bony prominences padded. A bite block was positioned in the patient's mouth to protect the lips, teeth, and tongue for the procedure. A time-out was performed and then the patient was given procedural sedation starting with 6 mg of Versed and 100 mcg of fentanyl. Vitals were monitored throughout the procedure and remained stable. Once adequately sedated, the procedure was begun. The lubricated gastroscope was passed through the bite block and across the tongue and into the esophagus without incident. A tubular view of the esophagus was maintained as the scope was advanced through the esophagus and into the stomach. The scope was advanced through the stomach and to the pylorus. There was quite a bit of clear fluid in the stomach, no bilious content or undigested food was seen. Clear fluid was seen refluxing back into the stomach from the duodenum. The scope was gently popped through the pylorus and into the duodenal bulb. The scope was flexed and advanced into the second and third portions of the duodenum. The duodenum and duodenal bulb appeared normal. Biopsies were taken evaluate microscopic mucosal abnormalities. The scope was withdrawn into the stomach. The stomach appeared fairly normal, without evidence of significant endoscopic gastritis, but some mild mucosal changes which may indicate a low-grade gastritis. Biopsies were taken of the antrum and gastric body to evaluate gastritis and to rule out H pylori. The scope was retroflexed and the gastric cardia was examined. The hiatus appeared normal, with no evidence of a significant gaping around the scope, or hiatal hernia. No ulcers were seen or other abnormalities in the cardia. The scope was then straightened, and withdrawn into the esophagus. The Z-line appeared normal. The distal esophagus appeared normal. Biopsies were taken in the distal and mid esophagus to evaluate microscopic esophagitis. The scope was then withdrawn through the esophagus with a tubular view. The scope was then withdrawn from the patient the procedure was concluded. The patient tolerated the procedure well and was transferred to the PACU in stable condition. Sedation minutes: 18 Findings: gastritis Specimen(s): other (Biopsies of duodenum, gastric antrum, gastric body, esophagus) Complications: none Impression: Mild visible gastritis, no other significant abnormality Post-procedure Recommendations: Other recommendation (Further recommendations pending biopsy results) Follow up: as needed Disposition: PACU
[2020-05-01 08:14] VITALS: BP 114/72; PULSE 77; RESP 12; TEMP 36.7; O2SAT 94
[2020-05-01 08:19] VITALS: BP 120/79; PULSE 83; RESP 16; O2SAT 94
[2020-05-01 08:24] VITALS: BP 112/82; PULSE 77; RESP 12; O2SAT 95
[2020-05-01 08:29] VITALS: BP 117/76; PULSE 73; RESP 18; TEMP 36.7; O2SAT 93
[2020-05-01 08:36] VITALS: BP 119/77; PULSE 74; RESP 16; O2SAT 94
--- NOTE | 2020-05-01 08:47 | SUR.PHASEII ---
Pt has met discharge criteria: Denied pain or nausea, able to drink fluids without difficulty. Discharge instructions discussed with pt, all questions answered. Transported via W/C to private vehicle.
== END 2020-05-01 08:51 | disposition home or self-care (01) ==
PROVIDERS: PCP Family Medicine; Referring Provider Surgery; Visit Provider Surgery
PROC: 0DJD8ZZ Inspection of Lower Intestinal Tract, Via Natural or Artificial Opening Endoscopic (ICD-10-PCS; CPT 45378; principal; 2020-05-01 07:45)
DX: K29.50 Unspecified chronic gastritis without bleeding (principal); E78.5 Hyperlipidemia, unspecified
CPT/HCPCS: 43239; 99152; J2250; J3010

== ENCOUNTER → 2020-08-20 07:47 | Outpatient (CLI) | payer OTHER, SELFPAY ==
[2020-08-20] MEDS: COVID-19 VACC #1, MRNA(MOD) 100 MCG/0.5 ML VIAL IM (07:59)
== END ==
PROVIDERS: PCP Family Medicine; Visit Provider Internal Medicine
DX: Z23 Encounter for immunization (principal)
CPT/HCPCS: 0011A; 91301

== ENCOUNTER → 2020-09-18 15:49 | Outpatient (CLI) | payer OTHER, SELFPAY ==
[2020-09-18] MEDS: COVID-19 VACC #2, MRNA(MOD) 100 MCG/0.5 ML VIAL IM (16:00)
== END ==
PROVIDERS: PCP Family Medicine; Visit Provider Internal Medicine
DX: Z23 Encounter for immunization (principal)
CPT/HCPCS: 0012A; 91301

== ENCOUNTER → 2021-03-13 10:30 | Outpatient (CLI) | payer OTHER, SELFPAY ==
[2021-03-13 10:41] LABS: Add Manual Diff / Slide Review NO; Basophils Absolute Auto 100 /uL (0-100); Basophils Percent Auto 0.8 % (0-2); Eosinophils Absolute Auto 400 /uL (0-450); Eosinophils Percent Auto 6.3 % (2-4); Hematocrit 41.3 % (41-53); Hemoglobin 14.1 g/dL (13.5-17.5); Lymphocytes Absolute Auto 2400 /uL (1100-4500); Lymphocytes Percent Auto 37.4 % (25-40); Mean Corpuscular HGB Conc 34.3 % (30-36); Mean Corpuscular Hemoglobin 30.9 PG (26-34); Mean Corpuscular Volume 90.2 fL (80-100); Monocytes Absolute Auto 600 /uL (0-900); Monocytes Percent Auto 9.9 % (3-14); Neutrophils Absolute Auto 2900 /uL (1500-7000); Neutrophils Percent Auto 45.6 % (50-75); Platelet Count 171 X10^3/uL (150-400); Red Blood Cell Count 4.58 X10^6/uL (4.5-5.9); Red Cell Distribution Width 13.5 % (11.6-14.8); White Blood Cell Count 6.5 X10^3/uL (4.5-11.0)
[2021-03-13 11:51] LABS: HEMOLYSIS < 15 (0-50); Prostate Specific Antigen 2.59 ng/mL (0.10-4.00)
[2021-03-13 12:07] LABS: Alanine Aminotransferase 40 IU/L (<50); Albumin 4.1 g/dL (3.5-5.0); Albumin Globulin Ratio 1.6 (1.0-2.8); Alkaline Phosphatase 75 U/L (38-126); Aspartate Aminotransferase 34 IU/L (17-59); BUN Creatinine Ratio 26.6 (6-22); Bilirubin Total 0.7 mg/dL (0.2-1.3); Blood Urea Nitrogen 17 mg/dL (9-20); Calcium 9.1 mg/dL (8.4-10.2); Carbon Dioxide 31 mmol/L (22-32); Chloride 105 mmol/L (98-107); Cholesterol 141 mg/dL (140-199); Estimated Glomerular Filt Rate > 60.0 mL/min (>60); Globulin 2.6 g/dL (1.7-4.1); Glucose 102 mg/dL (70-100); HDL Cholesterol 33 mg/dL (40-60); LDL Cholesterol Calculated 100 mg/dL (<100); Potassium 3.9 mmol/L (3.4-5.1); Sodium 142 mmol/L (137-145); Total Protein 6.7 g/dL (6.3-8.2); Triglycerides 41 mg/dL (35-150)
== END ==
PROVIDERS: PCP Family Medicine; Referring Provider Family Medicine; Visit Provider Family Medicine
DX: Z82.49 Family history of ischemic heart disease and other diseases of the circulatory system (principal); K29.50 Unspecified chronic gastritis without bleeding; Z12.5 Encounter for screening for malignant neoplasm of prostate; E78.2 Mixed hyperlipidemia
CPT/HCPCS: 36415; 80053; 80061; 84153; 85025

== ENCOUNTER → 2021-06-30 09:05 | Outpatient (CLI) | payer OTHER, SELFPAY ==
[2021-06-30 11:38] LABS: COVID19 -Nasal RAPID Negative (Negative)
== END ==
PROVIDERS: PCP Family Medicine; Visit Provider Surgery
DX: Z01.812 Encounter for preprocedural laboratory examination (principal); Z20.822 Contact with and (suspected) exposure to COVID-19
CPT/HCPCS: 87635; C9803

== ENCOUNTER 2021-07-01 06:42 | Day surgery (SDC) | payer OTHER, SELFPAY ==
--- NOTE | 2021-07-01 | PATH_ITS ---
[facility] Accession Number: [id number] . 01 Material submitted: . PART A: duodenum - DUODENAL BIOPSIES PART B: stomach - ANTRUM BIOPSIES PART C: gastrointestinal site - GASTRIC BODY . 02 Diagnosis: A. Duodenum, Biopsies: Small bowel mucosa with no diagnostic abnormality. Negative for active inflammation, features of sprue, dysplasia, or malignancy. . B. Stomach, Antrum, Biopsies: Antral mucosa with mild chronic gastritis. Negative for Helicobacter organisms by immunohistochemistry. Negative for intestinal metaplasia. Negative for dysplasia and malignancy. . C. Stomach, Body, Biopsy: Body-type mucosa with mild chronic gastritis. Negative for Helicobacter organisms by immunohistochemistry. Negative for intestinal metaplasia. Negative for dysplasia and malignancy. [facility] 07/07/2021 1237 Local . 02 Electronically signed: . Trisha Bhatti MD, Pathologist NPI- [id number] . 01 Gross description: . Part A: DUODENAL BIOPSIES: Received in formalin are 2 fragment(s) of tobin, soft tissue measuring 0.4 x 0.2 x 0.1 cm to 0.1 x 0.1 x 0.1 cm submitted entirely in 1 cassette(s) Part B: ANTRUM BIOPSIES: Received in formalin are multiple fragment(s) of tobin, soft tissue measuring 0.5 x 0.3 x 0.1 cm in aggregate submitted entirely in 1 cassette(s) Part C: GASTRIC BODY: Received in formalin is 1 fragment(s) of tobin, soft tissue measuring 0.3 x 0.2 x 0.1 cm submitted entirely in 1 cassette(s) /CPE 07/02/2021 0521 Local . 02 Microscopic: . B-C. Immunohistochemical stains were performed on blocks B and C in order to evaluate for Helicobacter organisms and are both negative. The control stain showed appropriate reactivity. . * This test was developed and its performance characteristics determined by [facility]. It has not been cleared or approved by the U.S. Food and Drug Administration. The FDA has determined that such clearance or approval is not necessary. This test is used for clinical purposes. It should not be regarded as investigational or for research. . 02 Pathologist provided ICD-10: K29.70 . 02 CPT . 335870, 532004, 138807, L02551 Specimen Comment: A courtesy copy of this report has been sent to [phone] Performed at: 01 [facility] [address] [place] [address], [place], [place] [id number] MD Fabricio Esteves MD Phone: [phone] Performed at: 02 [facility] [address] [place] [id number] MD Trisha Bhatti MD Phone: [phone]
[2021-07-01 07:07] VITALS: BMI 29.2
[2021-07-01 07:12] VITALS: BP 123/70; PULSE 81; RESP 16; TEMP 36.1; O2SAT 98
[2021-07-01] MEDS: LACTATED RINGERS 1,000 ML 84 ML IV (07:18)
--- NOTE | 2021-07-01 07:44 | PM.HP.1 ---
History of Present Illness History of Present Illness Date Patient Seen: 07/01/21 Time Patient Seen: 07:44 Chief complaint: SDC Narrative: Reymundo is a 61-year-old man who had an EGD a year ago by Dr. Figueroa with biopsies of the antrum that showed some metaplasia. Had biopsies taken from his distal esophagus which were normal. He reports that his symptoms include a general feeling of malaise after eating without specific pain. Coffee and carbonated beverages seem to be principal triggers. Fatty foods do not seem to be associated with the symptoms. He states that his symptoms have improved somewhat since last year. Patient History Medical History Chicken pox Hyperlipidemia Measles Mumps Surgical History Anesthesia History of tonsillectomy (~1965) Status post colonoscopy (~2014) Family & Social History Family History Father Age: 78 Hyperlipidemia Prostate cancer Mother Age: 79 GI malignancy Social History: household members spouse,family Tobacco & Substance use: Tobacco type cigarettes Smoking Status Former smoker alcohol intake current alcohol intake frequency holiday/special occasion Substance Use Type does not use Meds Home Medications and Allergies Home Medications Medication Instructions Recorded Confirmed Type atorvastatin 80 mg tablet See Rx Instructions .ROUTE 05/27/21 07/01/21 Rx .COMPLEX #45 tab Allergies Allergy/AdvReac Type Severity Reaction Status Date / Time Penicillins Allergy Unknown CHILDHOOD Verified 07/01/21 06:57 Exam Vital Signs (past 8 hours): - 07/01/21 07:12 Temperature 97.0 F L Pulse Rate 81 Respiratory Rate 16 Blood Pressure 123/70 Pulse Oximetry 98 Oxygen Delivery Method Room Air Const General: healthy appearing Resp Effort & Inspection: normal respiratory effort Cardio Rate: regular rate GI Palpation: soft Other: No Jauregui sign Assessment & Plan Assessment and plan (1) Gastritis: Qualifiers: Gastritis type: unspecified gastritis Chronicity: chronic Gastritis bleeding: without bleeding Qualified Code(s): K29.50 - Unspecified chronic gastritis without bleeding Status: Acute Plan Plan for esophageal gastroduodenoscopy. We reviewed the risks and benefits and he would like to proceed. COVID-19 COVID-19 status: Negative Result date/Date tested (Pos, Neg/Pending): 06/30/21 Time Spent With Patient Critical Care time: I spent a total of [] minutes of critical care time on this patient's care today; this time is exclusive of procedural time.
[2021-07-01] MEDS: LIDOCAINE 4% SOLN 50 ML 20 ML TOP (07:49)
[2021-07-01] MEDS: MIDAZOLAM 5 MG/5 ML VIAL IV (07:50)
[2021-07-01] MEDS: fentaNYL 250 MCG/5 ML INJ IV (07:51)
--- NOTE | 2021-07-01 08:09 | PM.OP.EGD ---
Operative Date/Time/Diagnoses Date of procedure: 07/01/21 Time of procedure: 08:09 Pre-op diagnosis: History of gastric metaplasia Post-op diagnosis: same Procedure & Clinicians Study performed: Esophagogastroduodenoscopy Surgeon: Christiano Stacy Procedure Notes Procedure in detail: A timeout was performed. A bite blocked was placed. The patient was positioned in the left lateral decubitus position. The endoscope was inserted through the bite block and passed through the esophagus and stomach and into the duodenum. The duodenal mucosa appeared normal. Random biopsies were taken from the duodenum with cold forceps. The scope was withdrawn into the duodenal bulb and no abnormalities were noted. The scope was withdrawn into the stomach. The antrum appeared relatively normal over several random biopsies were taken from the antrum with cold forceps since this was the area with an abnormal results a year ago. There was a small patch of questionable mucosal disruption in the body of the stomach along the greater curve and random biopsies were taken from this patch. The scope was retroflexed and no hiatal hernia was seen. The scope was withdrawn into the esophagus and the distal esophagus and GE junction appeared normal. The remainder of the esophagus was normal. The scope was withdrawn. The patient was awakened and brought to recovery. Sedation minutes: 16 Post-procedure Recommendations: Will call with biopsy results Disposition: PACU
[2021-07-01 08:15] VITALS: BP 113/65; PULSE 64; RESP 15; TEMP 36.2; O2SAT 96
[2021-07-01 08:25] VITALS: BP 115/71; PULSE 71; RESP 15; O2SAT 96
[2021-07-01 08:30] VITALS: BP 110/69; PULSE 67; RESP 15; O2SAT 97
--- NOTE | 2021-07-01 08:33 | SUR.PHASEI ---
Discharge instructions reviewed with pt and he verbalized understanding.
[2021-07-01 08:35] VITALS: BP 114/65; PULSE 65; RESP 15; O2SAT 97
== END 2021-07-01 08:45 | disposition home or self-care (01) ==
PROVIDERS: PCP Family Medicine; Referring Provider Surgery; Visit Provider Surgery
PROC: 0DJ08ZZ Inspection of Upper Intestinal Tract, Via Natural or Artificial Opening Endoscopic (ICD-10-PCS; CPT 43235; principal; 2021-07-01 07:45)
DX: K29.50 Unspecified chronic gastritis without bleeding (principal)
CPT/HCPCS: 43239; 99152; J2250; J3010

== ENCOUNTER → 2021-07-14 12:24 | Outpatient (CLI) | payer OTHER, SELFPAY ==
--- NOTE | 2021-07-14 12:27 | DI.CT.S_ITS ---
PROCEDURE: CT ABDOMEN PELVIS W CON INDICATIONS: dyspepsia TECHNIQUE: After the administration of oral and IV contrast, axial sections were acquired from the lung bases to the pubic symphysis. Coronal and sagittal reformats were performed. For radiation dose reduction, the following was used: automated exposure control, adjustment of mA and/or kV according to patient size. COMPARISON: None. FINDINGS: Image quality: Excellent. Lung bases: Unremarkable. Heart: No significant findings. ABDOMEN: Liver: Numeral contour. 9 mm hypoattenuating lesion in the right hepatic lobe, most consistent with a cyst. Gallbladder: Contracted. A 1 cm gallstone is seen. Biliary ducts: Unremarkable. Pancreas: Unremarkable. Spleen: Unremarkable. Adrenal Glands: Unremarkable. Kidneys and Ureters: Symmetric enhancement without evidence of obstructive uropathy. 1.3 cm hypodense lesion in the left lower pole, which may reflect a proteinaceous or hemorrhagic cyst. Stomach and Bowel: No evidence of intestinal obstruction or inflammatory change. The appendix appears normal. Peritoneum: No abnormal intraperitoneal fluid. No free air. Ventral Wall: No hernia. Abdominal Nodes: No retroperitoneal lymphadenopathy. Soft tissue density within the mesentery with prominent mesenteric nodes. Vessels: Aorta and inferior vena cava are normal in size. PELVIS: Pelvic Organs: Enlargement of the prostate measuring 4.5 cm in transverse dimension. Bladder: The urinary bladder is not well distended. Pelvic Nodes: No enlarged lymph nodes. Miscellaneous: No inguinal hernias are seen. Bones: Multifocal degenerative change, most prominent at L4 through S1. IMPRESSION: 1. Infiltrative changes of the mesentery with nodes, which may reflect an infectious or inflammatory process. 2. 1.3 cm hypodense lesion in the left lower pole, which may reflect a proteinaceous or hemorrhagic cyst. Dictated by: Jesús Bergeron M.D. on 07/14/2021 at 14:31 Approved by: Jesús Bergeron M.D. on 07/14/2021 at 14:38
== END ==
PROVIDERS: PCP Family Medicine; Referring Provider Surgery; Visit Provider Surgery
DX: K29.50 Unspecified chronic gastritis without bleeding (principal); R59.0 Localized enlarged lymph nodes; N28.89 Other specified disorders of kidney and ureter; K76.9 Liver disease, unspecified; K80.20 Calculus of gallbladder without cholecystitis without obstruction
CPT/HCPCS: 74177; Q9967

== ENCOUNTER → 2021-09-10 12:18 | Outpatient (CLI) | payer OTHER, SELFPAY ==
--- NOTE | 2021-09-10 12:20 | DI.CT.S_ITS ---
PROCEDURE: CT ABDOMEN PELVIS W CON INDICATIONS: Abnormal imaging TECHNIQUE: After the administration of oral and intravenous contrast, axial sections were acquired from the lung bases to the pubic symphysis. Coronal and sagittal reformats were performed. For radiation dose reduction, the following was used: automated exposure control, adjustment of mA and/or kV according to patient size. COMPARISON:[facility], CT, CT ABDOMEN PELVIS W CON, 07/14/2021, 13:23. FINDINGS: Image quality: Excellent. Lung bases: Lung bases are clear. Heart size is normal. Solid organs: Liver: The liver has no mass or intrahepatic biliary ductal dilatation. The liver has a hypodensity measuring 1 cm in the right lobe laterally which is unchanged. Biliary: The gallbladder has no wall thickening. There are gallstones within the neck of the gallbladder with no evidence of cholecystitis. Pancreas: The pancreas has no mass or ductal dilatation. There is no surrounding inflammation. Spleen: Normal size. There are no masses. Adrenals: No hypertrophy or nodules. Kidneys: No obstructive calculus or hydronephrosis. No solid mass. No cystic mass. Hyperdense cyst in the left inferior pole is likely a hemorrhagic cyst. Peritoneum and bowel: Ground-glass opacities in the central mesentery are unchanged. The distal esophagus and stomach are normal. The small bowel has a normal caliber and appearance. The terminal ileum is normal. The large bowel has a normal caliber and appearance. The appendix is normal. No free fluid or air. The appendix is normal. Nodes and vessels: No retroperitoneal or mesenteric adenopathy by size criteria. Aorta and inferior vena cava are normal in size. The aorta has diffuse atherosclerotic calcifications. Miscellaneous: No abdominal wall mass or hernia. PELVIS: Genitourinary: The bladder has no wall thickening or mass. No bladder calcifications. Bones: Degenerative changes with no focal abnormality. Degenerative disc disease at L4-5 and L5-S1 causing foraminal and central canal stenosis. No vertebral body compression fractures. IMPRESSION: 1. No acute abnormality of the abdomen. 2. Ground-glass attenuation in the mesenteric root, no change compared to the prior CT on 07/14/2021 no adenopathy.. This finding can be seen with mesenteric panniculitis, mesenteric lymphoma, cirrhosis, inflammatory bowel disease, or can be idiopathic. This finding is usually a nonspecific incidental finding. No evidence of lymphadenopathy to suggest lymphoma. Dictated by: Robert Chavarria M.D. on 09/10/2021 at 15:03 Approved by: Robert Chavarria M.D. on 09/10/2021 at 15:10
== END ==
PROVIDERS: PCP Family Medicine; Referring Provider Surgery; Visit Provider Surgery
DX: R93.5 Abnormal findings on diagnostic imaging of other abdominal regions, including retroperitoneum (principal)
CPT/HCPCS: 74177; Q9967

== ENCOUNTER → 2022-10-19 12:04 | Outpatient (CLI) | payer OTHER, SELFPAY ==
[2022-10-19 13:28] LABS: Alanine Aminotransferase 34 IU/L (<50); Albumin 4.4 g/dL (3.5-5.0); Albumin Globulin Ratio 1.6 (1.0-2.8); Alkaline Phosphatase 105 U/L (38-126); Aspartate Aminotransferase 31 IU/L (17-59); BUN Creatinine Ratio 36.5 (6-22); Bilirubin Total 0.5 mg/dL (0.2-1.3); Blood Urea Nitrogen 23 mg/dL (9-20); Calcium 9.3 mg/dL (8.4-10.2); Carbon Dioxide 28 mmol/L (22-32); Chloride 104 mmol/L (98-107); Cholesterol 160 mg/dL (140-199); Estimated Glomerular Filt Rate > 60 mL/min (>60); Globulin 2.7 g/dL (1.7-4.1); Glucose 75 mg/dL (80-110); HEMOLYSIS < 15 (0-50); Potassium 4.5 mmol/L (3.4-5.1); Sodium 140 mmol/L (137-145); Total Protein 7.1 g/dL (6.3-8.2); Triglycerides 41 mg/dL (35-150)
[2022-10-19 13:58] LABS: Prostate Specific Antigen Scrn 2.87 ng/mL (0.1-4.0)
[2022-10-19 14:18] LABS: HDL Cholesterol 42 mg/dL (40-60); LDL Cholesterol Calculated 110 mg/dL (<100)
[2022-10-20 03:18] LABS: Labcorp Hemoglobin (Hb) A1c 5.7 % (4.8-5.6)
[2022-10-20 16:38] LABS: HIV 1 & 2 Ab/Ag 4th Gen Combo NEGATIVE (NEGATIVE); Hep C Virus Ab w/Reflex Quant NEGATIVE s/c (NEGATIVE)
== END ==
PROVIDERS: PCP Family Medicine; Referring Provider Family Medicine; Visit Provider Family Medicine
DX: Z00.00 Encounter for general adult medical examination without abnormal findings (principal); E78.5 Hyperlipidemia, unspecified; Z12.5 Encounter for screening for malignant neoplasm of prostate
CPT/HCPCS: 36415; 80053; 80061; 83036; 86803; 87389; G0103

== ENCOUNTER → 2023-04-28 17:37 | Outpatient (CLI) | payer OTHER, SELFPAY ==
[2023-04-28 19:12] LABS: COVID-19 CEPHEID 4-PLEX PCR Negative (Negative); Influenza A - CEPHEID Flu A POSITIVE (NEGATIVE); Influenza B - CEPHEID Flu B NEGATIVE (NEGATIVE); Respiratory Syncytial Virus Negative (Negative)
== END ==
PROVIDERS: PCP Family Medicine; Visit Provider Physician Assistant Medical
DX: Z20.828 Contact with and (suspected) exposure to other viral communicable diseases (principal)
CPT/HCPCS: 0241U

== ENCOUNTER → 2023-10-07 10:33 | Outpatient (CLI) | payer OTHER, SELFPAY ==
[2023-10-07 11:47] LABS: Hemoglobin A1C% w Est Avg Glu 5.7 % (4.0-6.0)
== END ==
PROVIDERS: PCP Family Medicine; Referring Provider Family Medicine; Visit Provider Family Medicine
DX: R73.01 Impaired fasting glucose (principal)
CPT/HCPCS: 83036

== ENCOUNTER → 2023-10-21 10:25 | Outpatient (CLI) | payer OTHER, SELFPAY ==
[2023-10-21 11:13] LABS: HEMOLYSIS < 15 (0-50)
[2023-10-21 11:21] LABS: Alanine Aminotransferase 26 IU/L (<50); Albumin 4.1 g/dL (3.5-5.0); Albumin Globulin Ratio 1.5 (1.0-2.8); Alkaline Phosphatase 87 U/L (38-126); Aspartate Aminotransferase 30 IU/L (17-59); BUN Creatinine Ratio 33.3 (6-22); Bilirubin Total 0.7 mg/dL (0.2-1.3); Blood Urea Nitrogen 23 mg/dL (9-20); Carbon Dioxide 28 mmol/L (22-32); Chloride 108 mmol/L (98-107); Cholesterol 151 mg/dL (140-199); Estimated Glomerular Filt Rate > 60 mL/min (>60); Globulin 2.7 g/dL (1.7-4.1); Glucose 96 mg/dL (80-110); HDL Cholesterol 40 mg/dL (40-60); LDL Cholesterol Calculated 103 mg/dL (<100); Potassium 4.6 mmol/L (3.4-5.1); Sodium 140 mmol/L (137-145); Total Protein 6.8 g/dL (6.3-8.2); Triglycerides 38 mg/dL (35-150)
[2023-10-21 12:00] LABS: Prostate Specific Antigen Scrn 3.06 ng/mL (0.1-4.0)
== END ==
LOC: LAB 10:29
PROVIDERS: PCP Family Medicine; Referring Provider Family Medicine; Visit Provider Family Medicine
DX: Z12.5 Encounter for screening for malignant neoplasm of prostate (principal); R73.01 Impaired fasting glucose; E78.2 Mixed hyperlipidemia
CPT/HCPCS: 36415; 80053; 80061; G0103

== ENCOUNTER 2024-03-28 07:05 | Day surgery (SDC) | payer OTHER, SELFPAY ==
[2024-03-28 07:27] VITALS: BP 121/82; PULSE 94; RESP 16; TEMP 36.3; O2SAT 95
--- NOTE | 2024-03-28 08:07 | P.HP_ITS ---
History of Present Illness History of Present Illness Date Patient Seen: 03/28/24 Time Patient Seen: 08:07 Chief complaint: SDC Narrative: Reymundo is a 64-year-old man here for a screening colonoscopy. His last was about 10 years ago and he had a hyperplastic polyp. [facility] Medical History IFG (impaired fasting glucose) Hyperlipidemia Mumps Measles Chicken pox Surgical History Anesthesia Status post colonoscopy (~2014) History of tonsillectomy (~1965) Family History Father Age: 81 Hyperlipidemia Prostate cancer Mother Age: 82 GI malignancy Social History marital status: number of children: 2 household members: spouse and family education level: high school occupational status: employed Smoking Status: Former smoker alcohol intake: current substance use type: does not use Meds Home Medications and Allergies Home Medications Medication Instructions Recorded Confirmed Type atorvastatin 80 mg tablet 80 mg PO DAILY #90 tabs 10/27/23 03/28/24 Rx lidocaine 5 % topical patch 1 patch topical DAILY #30 ea 01/31/24 03/28/24 Rx (Lidoderm) tizanidine 4 mg tablet 4 mg PO BEDTIME PRN muscle 01/31/24 03/28/24 Rx spasticity #30 tabs sodium,potassium,mag sulfates 17.5 See Rx Instructions PO .COMPLEX 02/21/24 Rx gram-3.13 gram-1.6 gram oral soln #354 mL (Suprep Bowel Prep Kit) loratadine 10 mg tablet (Claritin) 10 mg PO DAILY 03/28/24 03/28/24 History Allergies Allergy/AdvReac Type Severity Reaction Status Date / Time Penicillins Allergy Unknown CHILDHOOD Verified 03/28/24 07:15 Exam Vital Signs (past 8 hours): - 03/28/24 07:27 Temperature 97.3 F L Pulse Rate 94 H Respiratory Rate 16 Blood Pressure 121/82 Pulse Oximetry 95 Oxygen Delivery Method Room Air Oxygen Delivery Method Room Air Const General: healthy appearing Assessment & Plan Assessment and plan (1) Colon cancer screening: Status: Acute Plan Colonoscopy Time-Based Coding :: [TOTAL MINUTES] spent with patient and on the chart (including review of chart, obtaining history, exam, reviewing outside data, placing orders, documenting exam and treatment plan, and counseling patient) on [DATE].
[2024-03-28 08:35] VITALS: BP 99/71; PULSE 81; RESP 16; TEMP 36.1; O2SAT 98
--- NOTE | 2024-03-28 08:39 | PM.OP.COLON ---
Operative Date/Time/Diagnoses Date of procedure: 03/28/24 Time of procedure: 08:39 Pre-op diagnosis: Colon cancer screening Post-op diagnosis: same Procedure & Clinicians Study performed: Colonoscopy Same procedure as scheduled: Yes Surgeon: Christiano Stacy Procedure Notes Procedure in detail: Surgeon: Christiano Stacy MD Anesthesia: Monique Pan CRNA Procedure: The patient was brought to the endoscopy suite, placed in left lateral decubitus position. The patient was connected to monitoring devices. A time-out was performed. Sedation was administered. Once the patient was adequately sedated, a digital rectal exam was performed and was normal. The scope was then inserted and advanced to the cecum where the appendiceal orifice was identified and photographed. The scope was then slowly withdrawn over greater than 6 minutes. The mucosa was thoroughly inspected. No abnormalities were identified. The scope was retroflexed in the rectum. The scope was straightened and removed. The patient was awakened and brought to recovery. Scope withdrawal time: 7 minutes Sedation time: 13 minutes EBL: 0 Findings: Normal colon Post-procedure Recommendations: Colonoscopy in 10 years Disposition: PACU
[2024-03-28 08:40] VITALS: BP 102/77; PULSE 100; RESP 16; O2SAT 98
[2024-03-28 08:44] VITALS: BP 104/74; PULSE 93; RESP 16; TEMP 36.8; O2SAT 98
== END 2024-03-28 08:52 | disposition home or self-care (01) ==
PROVIDERS: PCP Family Medicine; Referring Provider Surgery; Visit Provider Surgery
PROC: 0DJD8ZZ Inspection of Lower Intestinal Tract, Via Natural or Artificial Opening Endoscopic (ICD-10-PCS; CPT 45378; principal; 2024-03-28 08:15)
DX: Z12.11 Encounter for screening for malignant neoplasm of colon (principal); Z86.0100 Personal history of colon polyps, unspecified
CPT/HCPCS: 45378; J2704

== ENCOUNTER → 2024-10-29 15:44 | Outpatient (CLI) | payer OTHER, SELFPAY ==
[2024-10-29 17:30] LABS: Alanine Aminotransferase 27 IU/L (<50); Albumin 4.4 g/dL (3.5-5.0); Albumin Globulin Ratio 1.8 (1.0-2.8); Alkaline Phosphatase 71 U/L (38-126); Blood Urea Nitrogen 19 mg/dL (9-20); Calcium 9.2 mg/dL (8.4-10.2); Carbon Dioxide 27 mmol/L (22-32); Chloride 104 mmol/L (98-107); Cholesterol 146 mg/dL (140-199); Estimated Glomerular Filt Rate > 60 mL/min (>60); Globulin 2.4 g/dL (1.7-4.1); Glucose 75 mg/dL (70-99); HDL Cholesterol 37 mg/dL (40-60); HEMOLYSIS < 15 (0-50); Potassium 4.3 mmol/L (3.4-5.1); Sodium 139 mmol/L (137-145); Total Protein 6.8 g/dL (6.3-8.2); Triglycerides 67 mg/dL (35-150)
[2024-10-29 17:32] LABS: Hemoglobin A1C% w Est Avg Glu 5.7 % (4.0-6.0)
== END ==
PROVIDERS: PCP Family Medicine; Referring Provider Family Medicine; Visit Provider Family Medicine
DX: R73.01 Impaired fasting glucose (principal); Z82.49 Family history of ischemic heart disease and other diseases of the circulatory system; E78.2 Mixed hyperlipidemia; K31.89 Other diseases of stomach and duodenum; Z12.5 Encounter for screening for malignant neoplasm of prostate
CPT/HCPCS: 36415; 80053; 80061; 83036; G0103